=== PATIENT | male | born 1995 | race Caucasian/White ===

== ENCOUNTER 2021-01-21 13:14 | Emergency (ER) | payer OTHER, MEDICAID, SELFPAY ==
[2021-01-21] VITALS (10 sets, daily range): BP systolic 118–155; BP diastolic 56–73; PULSE 60–92; RESP 13–18; TEMP 36.2; O2SAT 96–99; BMI 37.5
--- NOTE | 2021-01-21 13:18 | ED_ITS ---
HPI - Abdominal Pain General Chief Complaint: Abdominal Pain Stated Complaint: severe stomach pain/nausea/vomiting x4 days Time Seen by Provider: 01/21/21 13:18 Source: patient and family Mode of arrival: Ambulatory Limitations: no limitations History of Present Illness HPI narrative: 25-year-old male nonsmoker, frequent user of marijuana presents with family in the chief complaint of 4 days of severe periumbilical and epigastric abdominal pain. Over the course of the day he has also had nausea, vomiting and some diarrhea. He denies any fever or chills. He denies exposure to bad food or recent use of antibiotics. He has had this in the past and states it was diagnosed as abdominal migraines. He states his pain seems to come and go with a mind of its and at its most intense is 10/10 and is currently a 4/10. He denies any obvious provocation, palliation or radiation of his symptoms. He is otherwise well and denies any dizziness, weakness, lightheadedness or exposure to COVID MD complaint: abdominal pain Pain Consistency: intermittent Location: periumbilical and epigastric Severity: severe Quality: cramping and aching Radiation: none Relieving factors: nothing Exacerbating factors: nothing Associated symptoms: nausea, vomiting and diarrhea Related Data Home Medications Medication Instructions Recorded Confirmed docusate sodium 250 mg capsule 250 mg PO DAILY 01/20/21 01/20/21 prochlorperazine 25 mg rectal 25 mg IA BEDTIME PRN ea 01/20/21 01/20/21 suppository prochlorperazine maleate 10 mg 10 mg PO DAILY PRN tab 01/20/21 01/20/21 tablet prucalopride 2 mg tablet 2 mg PO DAILY 01/20/21 01/20/21 Previous Rx's Medication Instructions Recorded paroxetine HCl 10 mg tablet 10 mg PO DAILY #30 tab 01/20/21 amoxicillin-pot clavulanate 1 tab PO BID #20 tab 01/21/21 [Augmentin] hyoscyamine sulfate 0.125 mg PO BID-QID PRN #20 tab 01/21/21 metoclopramide HCl 10 mg PO Q6H PRN #20 tab 01/21/21 nortriptyline 50 mg PO BEDTIME #30 cap 01/21/21 Allergies Allergy/AdvReac Type Severity Reaction Status Date / Time haloperidol [From Haldol] AdvReac Severe slow heart Verified 01/21/21 13:25 rate Review of Systems Constitutional Constitutional: Denies chills, Denies fatigue, Denies fever(s), Denies frequent falls, Denies lethargy and Denies weakness Eyes Eyes: Denies change in vision, Denies eye discharge, Denies irritation and Denies loss of vision ENT Ears, Nose, Mouth, and Throat: Denies change in voice, Denies dizziness, Denies neck pain, Denies sore throat and Denies throat swelling Cardiovascular Cardiovascular: Denies chest pain, Denies irregular heart rhythm, Denies lightheadedness, Denies palpitations, Denies dyspnea, Denies dyspnea on exertion and Denies orthopnea Respiratory Respiratory: Denies cough, Denies dyspnea, Denies dyspnea on exertion and Denies wheezing Gastrointestinal Gastrointestinal: Reports abdominal pain, Denies change in bowel habits, Reports diarrhea, Reports nausea and Reports vomiting Musculoskeletal Musculoskeletal: Denies neck pain and Denies numbness Integumentary/Breasts Skin/Breast: Denies pruritus, Denies erythema, Denies rash and Denies wounds Neurologic Neurologic: Denies behavioral changes, Denies confusion, Denies dizziness, Denies frequent falls, Denies loss of vision, Denies numbness and Denies weakness Psychiatric Psychiatric: Denies anxiety, Denies behavioral changes, Denies confusion, Denies depression, Denies homicidal ideation and Denies suicidal ideation Endocrine Endocrine: Denies fatigue, Denies flushing and Denies palpitations Hematologic/Lymphatic Hematologic/Lymphatic: Denies easy bruising Allergic/Immunologic Allergic/Immunologic: Denies urticaria, Denies throat swelling and Denies wheezing Patient History Medical History Intestinal functional disorder Social History Smoking Status: Current some day smoker (marijuana ) alcohol intake: current (one drink per year ) substance use type: marijuana (3 days out of the week ) Smoking Status: Current some day smoker (marijuana ) Exam Narrative Exam Narrative: GENERAL: [25] year old patient appears stated age. Well-nourish ed, well-developed patient, in obvious distress, clutching his upper abdomen. HEAD: Atraumatic. Normocephalic. EYES: Pupils equal round and reactive. Extraocular motions intact. No scleral icterus. No injection or drainage. ENT: Nose without bleeding, purulent drainage. Throat without erythema, to nsillar hypertrophy or exudate. Airway patent. NECK: Trachea midline. Non tender CARDIOVASCULAR: Regular rate and rhythm without murmurs, gallops, or rubs. RESPIRATORY: Clear to auscultation. Breath sounds equal bilaterally. No wheezes, rales, or rhonchi. GASTROINTESTINAL: Abdomen soft, non-tender, nondistended. EXTREMITIES: No edema or joint tenderness. BACK: Nontender without deformity or crepitance. No flank tenderness. NEURO: AOx3. SKIN: No rash or erythema of visible areas Initial Vital Signs Initial Vital Signs: Vital Signs Temperature 97.1 F L 01/21/21 13:18 Pulse Rate 79 01/21/21 13:18 Respiratory Rate 13 01/21/21 13:18 Blood Pressure 155/70 H 01/21/21 13:18 Pulse Oximetry 98 01/21/21 13:18 Course Orders Ordered: ED Orders 01/21/21 13:23 Complete Blood Count AUTO DIFF Stat Comprehensive Metabolic Panel Stat Lipase Stat 01/21/21 13:36 XR acute abdomen series Stat 01/21/21 14:16 CT abdomen pelvis w con Stat Ondansetron HCl (Ondansetron 4 Mg/2 Ml Inj) 4 mg IV Q4HR PRN PRN Reason: Nausea And Vomiting Last Admin: 01/21/21 13:43 Dose: 4 mg Documented by: CLINTON Discontinued Medications Hydromorphone HCl (Hydromorphone 0.5 Mg Inj) 0.5 mg IV NOW ONE Stop: 01/21/21 14:19 Last Admin: 01/21/21 14:24 Dose: 0.5 mg Documented by: CLINTON Sodium Chloride (Normal Saline 0.9%) 1,000 mls @ 1,000 mls/hr IV BOLUS ONE Stop: 01/21/21 14:35 Last Infusion: 01/21/21 14:56 Dose: 0 mls/hr Documented by: Admin: 01/21/21 13:43 Dose: 1,000 mls/hr Documented by: CLINTON Metoclopramide HCl (Metoclopramide 10 Mg/2 Ml Inj) 10 mg IV NOW ONE Stop: 01/21/21 16:22 Pantoprazole Sodium (Pantoprazole 40 Mg Vial) 40 mg IV NOW ONE Stop: 01/21/21 13:37 Last Admin: 01/21/21 13:43 Dose: 40 mg Documented by: CLINTON Vital Signs Vital signs: Vital Signs - 8 hr 01/21/21 13:18 01/21/21 14:48 01/21/21 15:00 Temperature 97.1 F L Pulse Rate 79 79 60 Respiratory Rate 13 Blood Pressure 155/70 H 119/56 L Pulse Oximetry 98 96 98 01/21/21 15:14 01/21/21 15:30 Temperature Pulse Rate 72 Respiratory Rate Blood Pressure 137/63 128/73 Pulse Oximetry 99 99 MDM - Abdominal Pain Lab Data Result diagrams: 01/21/21 13:23 01/21/21 13:23 Labs: Lab Results 01/21/21 01/21/21 Range/Units 13:23 13:23 WBC 9.5 (4.5-11.0) X10^3/uL RBC 5.10 (4.5-5.9) X10^6/uL Hgb 15.3 (13.5-17.5) g/dL Hct 45.2 (41-53) % MCV 88.6 (80-100) fL MCH 30.0 (26-34) PG MCHC 33.8 (30-36) % RDW 13.1 (11.6-14.8) % Plt Count 264 (150-400) X10^3/uL Neut % (Auto) 75.8 H (50-75) % Lymph % (Auto) 16.3 L (25-40) % Charlotte % (Auto) 7.0 (3-14) % Eos % (Auto) 0.6 L (2-4) % Baso % (Auto) 0.3 (0-2) % Neut # (Auto) 7200 H (4749-5492) /uL Lymph # (Auto) 1500 (9781-5258) /uL Charlotte # (Auto) 700 (0-900) /uL Eos # (Auto) 100 (0-450) /uL Baso # (Auto) 0 (0-100) /uL Sodium 138 (137-145) mmol/L Potassium 3.9 (3.4-5.1) mmol/L Chloride 105 (98-107) mmol/L Carbon Dioxide 24 (22-32) mmol/L BUN 12 (9-20) mg/dL Creatinine 0.97 (0.66-1.25) mg/dL Estimated GFR > 60.0 (>60) mL/min BUN/Creatinine Ratio 12.4 (6-22) Glucose 108 H (70-100) mg/dL Calcium 10.0 (8.4-10.2) mg/dL Total Bilirubin 0.7 (0.2-1.3) mg/dL AST 42 (17-59) IU/L ALT 70 H (<50) IU/L Alkaline Phosphatase 66 (38-126) U/L Total Protein 8.4 H (6.3-8.2) g/dL Albumin 4.6 (3.5-5.0) g/dL Globulin 3.8 (1.7-4.1) g/dL Albumin/Globulin Ratio 1.2 (1.0-2.8) Lipase 38 (23-300) U/L Imaging Data CT scan - abdomen/pelvis: Radiologist's Impression: Chart Viewer Diagnostics DATE TYPE STATUS REF RANGE/AUTHOR Hx Today 14:16 Betty Lo Today 13:36 Jules Saravia Jeffrey B 25, M101/03/1995 REG ER, Main ED R06 190.5cm 136.078kg BMI: 37.5kg/m? Abdominal Pain Search Chart No Data to Display slow heart rate ONSET Today 15:30 Eliseo Larry 25 M [address] Scan ReportSigned Patient: Noe Larryrey BMR#: [id number]: 1995Acct:[id number]/Sex: 25 / MDate of Service: 01/21/21Loc: [facility] ssion Number: [id number] Procedure: CT abdomen pelvis w con Ordering Provider: Patricio Finn D.O. PROCEDURE: CT ABDOMEN PELVIS W CON INDICATIONS: severe abdominal pain TECHNIQUE: After the administration of intravenous contrast, 5 mm thick sections acquired from the diaphragm to the symphysis. 5 mm coronal and sagittal reformats were acquired. For radiation dose reduction, the following was used: automated exposure control, adjustment of mA and/or kV according to patient size. COMPARISON: [facility], CR, XR ACUTE ABDOMEN SERIES, 01/21/2021, 13:42. FINDINGS: Image quality: Excellent. ABDOMEN: Lung bases: Mild infiltrate or atelectasis at lung bases. Heart size is normal. Tiny hiatal hernia. Solid organs: Hepatic steatosis. Liver is normal in size and enhancement. Gallbladder is surgically absent. Biliary system is non dilated. Pancreas enhances normally. Spleen is normal in size and enhancement. No adrenal nodules. Kidneys demonstrate normal size and enhancement, without hydronephrosis. Peritoneum and bowel: Bowel loops demonstrate normal wall thickness and caliber. Appendix is normal. A few colonic diverticula are present. There is mild subtle stranding in the proximal sigmoid colon. No free fluid or air. Nodes and vessels: No retroperitoneal or mesenteric adenopathy by size criteria. Aorta and inferior vena cava are normal in size. Miscellaneous: No ventral hernias. PELVIS: Genitourinary: Bladder wall thickness is normal. Miscellaneous: No inguinal hernias or adenopathy. Bones: No suspicious bony lesions. No vertebral body compression fractures. IMPRESSION: 1. Mild diverticulosis. Possible mild diverticulitis. 2. Hepatic steatosis. 3. Normal appendix. 4. Mild bibasilar infiltrate or atelectasis. Dictated by: Julio Lo M.D. on 01/21/2021 at 15:27 Approved by: Julio Lo M.D. on 01/21/2021 at 15:36 MDM Narrative Medical decision making narrative: Multiple etiologies for patient's symptoms considered including: [Bowel obstruction versus pancreatitis versus infectious process versus gastroparesis] Patient's symptoms improved over duration of stay with above-stated therapies. Findings and discharge diagnosis discussed with patient/family followed by verbalization of understanding Return precautions discussed with patient/family whom verbalize understanding. Discharge Plan Departure Patient Disposition: Home Clinical Impression: Diverticulitis Instructions: DI for Diverticulitis, DI for Abdominal Pain-Adult Activity Restrictions/Additional Instructions: *You have been diagnosed with [abdominal pain, likely mild diverticulitis with the possibility of gastroparesis.] *What to do: *Take medications as directed *Follow up with your primary care provider in 2-3 days, call for an appointment. Let them know you were seen in the Emergency Department and that we ask that you be seen in follow up *Return to ER if you should have any new, worsening or concerning symptoms, * please consider a clear liquid diet for the next 24-48 hours. Prescriptions: New amoxicillin-pot clavulanate [Augmentin] 875-125 mg tablet 1 tab PO BID Qty: 20 RF: 0 metoclopramide HCl 10 mg tablet 10 mg PO Q6H PRN (Reason: nausea and vomiting) Qty: 20 RF: 0 hyoscyamine sulfate 0.125 mg tablet 0.125 mg PO BID-QID PRN (Reason: dyspepsia) Qty: 20 RF: 0 Continued paroxetine HCl 10 mg tablet 10 mg PO DAILY Qty: 30 RF: 2 nortriptyline 50 mg capsule 50 mg PO BEDTIME Qty: 30 RF: 0 No Action docusate sodium 250 mg capsule 250 mg PO DAILY RF: 0 Motegrity 2 mg tablet 2 mg PO DAILY RF: 0 prochlorperazine [Compro] 25 mg suppository 25 mg IA BEDTIME PRNRF: 0 prochlorperazine maleate 10 mg tablet 10 mg PO DAILY PRNRF: 0 Referrals: Moreno Silvestre DO [Primary Care Provider] -
--- NOTE | 2021-01-21 13:36 | DI.RAD.S_ITS ---
PROCEDURE: XR ACUTE ABDOMEN SERIES INDICATIONS: Abdominal pain TECHNIQUE: One view chest and two views of the abdomen were acquired. COMPARISON: None. FINDINGS: Surgical changes and devices: Cholecystectomy clips. Clip projecting over the right pelvis. Chest: Prominent pulmonary markings bilaterally. No consolidation. Heart size is normal. No pleural effusions. No pneumoperitoneum. Accessory right azygos fissure. Abdomen: Paucity of small bowel gas limits evaluation for small bowel dilatation. No pneumoperitoneum. No suspicious calcifications. Visualized solid organ contours appear normal. Bones: No suspicious bony lesions. IMPRESSION: 1. Prominent pulmonary vasculature markings with a central predominance. This could be due to infectious/inflammatory etiology or pulmonary vasculature engorgement. 2. Paucity of small bowel gas limits evaluation for SBO. If clinically indicated consider CT abdomen and pelvis with IV contrast for further evaluation. Dictated by: Jules Saravia M.D. on 01/21/2021 at 13:56 Approved by: Jules Saravia M.D. on 01/21/2021 at 14:00
[2021-01-21 13:42] LABS: Add Manual Diff / Slide Review NO; Basophils Absolute Auto 0 /uL (0-100); Basophils Percent Auto 0.3 % (0-2); Eosinophils Absolute Auto 100 /uL (0-450); Eosinophils Percent Auto 0.6 % (2-4); Hematocrit 45.2 % (41-53); Hemoglobin 15.3 g/dL (13.5-17.5); Lymphocytes Absolute Auto 1500 /uL (1100-4500); Lymphocytes Percent Auto 16.3 % (25-40); Mean Corpuscular HGB Conc 33.8 % (30-36); Mean Corpuscular Volume 88.6 fL (80-100); Monocytes Absolute Auto 700 /uL (0-900); Neutrophils Absolute Auto 7200 /uL (1500-7000); Neutrophils Percent Auto 75.8 % (50-75); Platelet Count 264 X10^3/uL (150-400); Red Cell Distribution Width 13.1 % (11.6-14.8); White Blood Cell Count 9.5 X10^3/uL (4.5-11.0)
[2021-01-21] MEDS: SODIUM CHLORIDE 0.9% 1,000 ML 1000 ML IV (13:43)
[2021-01-21] MEDS: ONDANSETRON 4 MG/2 ML INJ IV (13:43)
[2021-01-21] MEDS: PANTOPRAZOLE 40 MG VIAL IV (13:43)
[2021-01-21 13:48] LABS: Alanine Aminotransferase 70 IU/L (<50); Albumin 4.6 g/dL (3.5-5.0); Albumin Globulin Ratio 1.2 (1.0-2.8); Alkaline Phosphatase 66 U/L (38-126); Aspartate Aminotransferase 42 IU/L (17-59); BUN Creatinine Ratio 12.4 (6-22); Bilirubin Total 0.7 mg/dL (0.2-1.3); Blood Urea Nitrogen 12 mg/dL (9-20); Carbon Dioxide 24 mmol/L (22-32); Chloride 105 mmol/L (98-107); Estimated Glomerular Filt Rate > 60.0 mL/min (>60); Globulin 3.8 g/dL (1.7-4.1); Glucose 108 mg/dL (70-100); HEMOLYSIS 20 (0-50); Lipase 38 U/L (23-300); Potassium 3.9 mmol/L (3.4-5.1); Sodium 138 mmol/L (137-145); Total Protein 8.4 g/dL (6.3-8.2)
--- NOTE | 2021-01-21 14:16 | DI.CT.S_ITS ---
PROCEDURE: CT ABDOMEN PELVIS W CON INDICATIONS: severe abdominal pain TECHNIQUE: After the administration of intravenous contrast, 5 mm thick sections acquired from the diaphragm to the symphysis. 5 mm coronal and sagittal reformats were acquired. For radiation dose reduction, the following was used: automated exposure control, adjustment of mA and/or kV according to patient size. COMPARISON: [facility], CR, XR ACUTE ABDOMEN SERIES, 01/21/2021, 13:42. FINDINGS: Image quality: Excellent. ABDOMEN: Lung bases: Mild infiltrate or atelectasis at lung bases. Heart size is normal. Tiny hiatal hernia. Solid organs: Hepatic steatosis. Liver is normal in size and enhancement. Gallbladder is surgically absent. Biliary system is non dilated. Pancreas enhances normally. Spleen is normal in size and enhancement. No adrenal nodules. Kidneys demonstrate normal size and enhancement, without hydronephrosis. Peritoneum and bowel: Bowel loops demonstrate normal wall thickness and caliber. Appendix is normal. A few colonic diverticula are present. There is mild subtle stranding in the proximal sigmoid colon. No free fluid or air. Nodes and vessels: No retroperitoneal or mesenteric adenopathy by size criteria. Aorta and inferior vena cava are normal in size. Miscellaneous: No ventral hernias. PELVIS: Genitourinary: Bladder wall thickness is normal. Miscellaneous: No inguinal hernias or adenopathy. Bones: No suspicious bony lesions. No vertebral body compression fractures. IMPRESSION: 1. Mild diverticulosis. Possible mild diverticulitis. 2. Hepatic steatosis. 3. Normal appendix. 4. Mild bibasilar infiltrate or atelectasis. Dictated by: Julio Lo M.D. on 01/21/2021 at 15:27 Approved by: Julio Lo M.D. on 01/21/2021 at 15:36
[2021-01-21] MEDS: HYDROMORPHONE 0.5 MG INJ IV (14:24)
[2021-01-21] MEDS: METOCLOPRAMIDE 10 MG/2 ML INJ IV (16:34)
== END 2021-01-21 17:06 | disposition home or self-care (01) ==
PROVIDERS: Emergency Provider Emergency Medicine; PCP Family Medicine
DX: K57.92 Diverticulitis of intestine, part unspecified, without perforation or abscess without bleeding (principal); R11.2 Nausea with vomiting, unspecified; R19.7 Diarrhea, unspecified
CPT/HCPCS: 36415; 74022; 74177; 80053; 83690; 85025; 96361; 96374; 96375; 99283; 99284; C9113; J1170; J2405; J2765; Q9967